=== PATIENT | female | born 1975 | race American Indian/Alaskan Native ===

== ENCOUNTER 2018-11-30 15:04 | Emergency (ER) | payer SELFPAY ==
[2018-11-30 15:24] VITALS: BP 109/84
--- NOTE | 2018-11-30 15:24 | Emergency Department Report ---
Blank Doc - Documentation Documentation: This is a 43-year-old female that presents with asthma exacerbation. Patient has been using her inhaler with no relief. Patient also stated has pain neck pain, right tib-fib pain and lower back pain. Denies any chest pain. This initial assessment diagnostic orders/clinical plan/treatment(s) is/are subject to change based on patient's health status, clinical progression and re- assessment by fellow clinical providers in the ED. Further treatment and workup at subsequent clinical providers discretion. Patient/guardians urged not to elope from ED s their condition may be serious if not clinically assessed and managed. Initial orders include: 1-Patient sent to [facility] for further evaluation and treatment 2- cxr 3- Breathing treatment with steroids
[2018-11-30] MEDS ORDERED: ATROVENT IH ONE (15:25)
[2018-11-30] MEDS ORDERED: PROVENTIL IH ONE (15:25)
[2018-11-30] MEDS ORDERED: DECADRON IM ONE (15:25)
[2018-11-30 16:02] LABS: Basophils # (Auto) 0.1 K/mm3 (0.0-0.1); Eosinophils # (Auto) 0.1 K/mm3 (0.0-0.4); Eosinophils % (Auto) 0.9 % (0.0-4.3); Hematocrit 41.5 % (30.3-42.9); Hemoglobin 13.5 gm/dl (10.1-14.3); Lymphocytes # (Auto) 1.8 K/mm3 (1.2-5.4); Lymphocytes % (Auto) 23.6 % (13.4-35.0); Mean Corpuscular HGB Conc 33 % (30-34); Mean Corpuscular Volume 71 fl (79-97); Monocytes # (Auto) 0.5 K/mm3 (0.0-0.8); Monocytes % (Auto) 6.6 % (0.0-7.3); Platelet Count 295 K/mm3 (140-440); Red Blood Count 5.85 M/mm3 (3.65-5.03); Red Cell Distribution Width 18.8 % (13.2-15.2)
[2018-11-30 16:14] LABS: BUN/Creatinine Ratio 9; Blood Urea Nitrogen 7 mg/dL (7-17); Calcium 8.8 mg/dL (8.4-10.2); Hemolysis Index 4
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
--- NOTE | 2018-11-30 18:32 | XRay Report ---
FINAL REPORT PROCEDURE: Chest. TECHNIQUE: PA and lateral views. HISTORY: Wheezing. COMPARISON: No prior studies are available for comparison. FINDINGS: The heart and mediastinum appear normal. The lungs are clear and well expanded. There are no pleural effusions. The soft tissues and regional skeleton are unremarkable. IMPRESSION: No evidence of acute disease.
--- NOTE | 2018-11-30 18:55 | Cat Scan Report ---
FINAL REPORT PROCEDURE: CT angiogram chest with contrast. TECHNIQUE: Computerized tomographic angiography of the chest was performed after the IV injection of iodinated nonionic contrast including image processing. The image data was postprocessed using 2-dim ensional multiplanar reformatted (MPR) and 3-dimensional (MIP and/or volume rendered) techniques. HISTORY: Elevated D-dimer, right-sided chest pain, shortness of breath. COMPARISON: No prior studies are available for comparison. FINDINGS: The trachea and central bronchi appear normal. There are numerous small cysts in both lungs. This cou ld indicate early emphysema. The lungs are otherwise clear and well expanded. There are no pleural ef fusions. The thoracic aorta has a normal caliber without evidence of dissection. The pulmonary arteri es enhance normally. There are no filling defects to indicate pulmonary embolism. There is no mediast inal adenopathy. The heart size is normal. The thoracic skeleton appears intact. IMPRESSION: No evidence of pulmonary embolism. Probable early emphysema.
[2018-11-30] MEDS ORDERED: NORCO 5/325 PO ONE (19:36)
== END 2018-11-30 19:59 | disposition home or self-care (01) ==
LOC: ED 15:04
DX: J43.1 Panlobular emphysema (principal); F17.200 Nicotine dependence, unspecified, uncomplicated
CPT/HCPCS: 36415; 71046; 71275; 72040; 73590; 80048; 85025; 85379; 94640; 96372; 99284; J1100; Q9967